=== PATIENT | male | born 1955 | race Caucasian/White ===

== ENCOUNTER 2024-12-22 21:56 | Emergency (ER) | payer MEDICARE, BC ==
[2024-12-22] MEDS ORDERED: Sulfamethoxazole/Trimethoprim 800-160 MG Tab PO ONE (21:57)
== END 2024-12-22 22:56 | disposition home or self-care (01) ==
LOC: FB.ED 21:56
DX: R21 Rash and other nonspecific skin eruption (principal); Z88.0 Allergy status to penicillin
CPT/HCPCS: 99282; A9270

== ENCOUNTER 2025-01-06 18:03 | Emergency (ER) | payer MEDICARE, BC ==
[2025-01-06] MEDS: Sulfamethoxazole/Trimethoprim 800-160 MG Tab PO ONE (18:25)
== END 2025-01-06 18:38 | disposition home or self-care (01) ==
LOC: FB.ED 18:03
DX: L03.114 Cellulitis of left upper limb (principal); I89.1 Lymphangitis; I10 Essential (primary) hypertension; Z88.0 Allergy status to penicillin; Z79.899 Other long term (current) drug therapy
CPT/HCPCS: 99283; A9270